=== PATIENT | female | born 1980 | race Two or more races ===

== ENCOUNTER → 2020-12-26 | Day surgery (SDC) | payer MEDICAID, OTHER ==
[~2020-12-26] VITALS: Ht 149.9 cm; Wt 95.3 kg
[~2020-12-26] MED LIST: DexAMETHasone SOD PHOS 10MG/1ML VIAL INJ ONE; HYDROmorphone HCL 2 MG/ML VL ONE; LABETALOL HCL 5 MG/ML 4ML SYRINGE IV PRN; MEPERIDINE HCL (50 MG/ML) 1 ML VIAL ONE; METHYLENE BLUE 0.5% 5MG/ML 10ml AMP IV ONE; MIDAZOLAM HCL 2MG/2ML 2ml VIAL (1mg/ml) IV PRN; MIDAZOLAM HCL 2MG/2ML 2ml VIAL (1mg/ml) ONE; MORPHINE SULFATE 4 MG/ML SYR/VIAL IV PRN; ONDANSETRON HCL 4 MG/2 ML VIAL IV PRN; ONDANSETRON HCL 4 MG/2 ML VIAL ONE; ROCURONIUM 10MG/ML 10ML VIAL IV ONE; SODIUM CHLORIDE 0.9% 1,000 ML IV ONE; SUCCINYLCHOLINE CHLORIDE 20 MG/ML 10ML VIAL IV ONE; ceFAZolin 1GM/50ML 100 ML IV ONE; ePHEDrine SULFATE 50 MG/ML AMP IV PRN; hydrALAZINE HCL 20 MG/ML VL IV PRN
[2020-12-26 10:09] LABS: Hemoglobin 9.4 g/dL (12.2-16.2); Monocytes # (auto) 0.5 10 ^3/uL (0-1.3); Neutrophils # (auto) 3.3 10 ^3/uL (1.6-8.6)
[2020-12-26 10:11] LABS: Basophils # (auto) 0.1 10 ^3/uL (0-0.2); Basophils % (auto) 0.9 % (0.0-2.0); Eosinophils # (auto) 0.2 10 ^3/uL (0-0.8); Eosinophils % (auto) 2.7 % (0.0-7.0); Hematocrit 30.8 % (36.0-46.0); Lymphocytes % (auto) 33.5 % (10.0-50.0); Mean Corpuscular Hemoglobin 19.4 pg (28.0-32.0); Mean Corpuscular Hgb Conc. 30.4 g/dL (32.0-36.0); Mean Corpuscular Volume 63.9 fL (80.0-100.0); Neutrophils % (auto) 54.9 % (37.0-80.0); Red Blood Cells 4.82 10^6/uL (4.0-5.20); Red Cell Distribution Width 19.5 % (11.8-14.3)
[2020-12-26 10:23] LABS: INR 0.98 (0.9-1.15); Partial Thromboplastin Time 23.1 sec (23.6-33.0)
[2020-12-26 10:41] LABS: Albumin 3.4 g/dL (3.4-5.0); Calcium 8.5 mg/dL (8.5-10.1); Potassium 3.8 mmol/L (3.5-5.1)
[2020-12-26 10:45] LABS: BUN/Creatinine Ratio 14.8; Bilirubin, Total 0.3 mg/dL (0.2-1.0); Total Protein 7.7 g/dL (6.4-8.2)
[2020-12-26] MEDS: BUPIVACAINE 0.25% INJ 50ML VIAL ONE ×2 (12:53→15:25)
[2020-12-26] MEDS: HYDROmorphone HCL 2 MG/ML VL IV PRN ×2 (15:45→16:08)
[2020-12-26 16:15] VITALS: BP 118/66
== END | disposition home or self-care (01) ==
LOC: ER 09:35 → SUR 09:36 → ER 13:20
PROVIDERS: ATTEND Obstetrics & Gynecology
DX: R10.30 Lower abdominal pain, unspecified (principal); O03.4 Incomplete spontaneous abortion without complication; E66.01 Morbid (severe) obesity due to excess calories; D64.9 Anemia, unspecified; Z68.41 Body mass index [BMI] 40.0-44.9, adult; Z98.890 Other specified postprocedural states; Z79.899 Other long term (current) drug therapy
CPT/HCPCS: 36415; 58120; 76801; 76817; 80053; 84702; 85025; 85610; 85730; 86850; 86900; 86901; 87426; 88305; 88312; 88342; J0330; J0690; J1100; J1170; J2175; J2250; J2405; J3490; J7030; 99152

== ENCOUNTER → 2021-09-06 | Outpatient (CLI) | payer BC | END | disposition home or self-care (01) | LOC: LAB 07:09 | PROVIDERS: ATTEND Nurse Practitioner Family | DX: R20.0 Anesthesia of skin (principal); N93.0 Postcoital and contact bleeding | CPT/HCPCS: 87086 ==

== ENCOUNTER 2021-12-20 12:02 | Day surgery (SDC) | payer BC ==
[2021-12-18 10:27] LABS: Basophils # (auto) 0.1 10 ^3/uL (0-0.2); Eosinophils # (auto) 0.1 10 ^3/uL (0-0.8); Hemoglobin 9.5 g/dL (12.2-16.2); Nucleated Red Blood Cells % 0.1 %; White Blood Cell 6.6 10^3/uL (4.4-10.8)
[2021-12-18 10:31] LABS: Basophils % (auto) 0.8 % (0.0-2.0); Eosinophils % (auto) 2.3 % (0.0-7.0); Hematocrit 32.9 % (36.0-46.0); Lymphocytes # (auto) 2.4 10 ^3/uL (0.4-5.4); Lymphocytes % (auto) 36.8 % (10.0-50.0); Mean Corpuscular Hemoglobin 18.2 pg (28.0-32.0); Mean Corpuscular Hgb Conc. 28.8 g/dL (32.0-36.0); Mean Corpuscular Volume 63.4 fL (80.0-100.0); Monocytes # (auto) 0.5 10 ^3/uL (0-1.3); Monocytes % (auto) 7.3 % (0.0-12.0); Neutrophils # (auto) 3.5 10 ^3/uL (1.6-8.6); Neutrophils % (auto) 52.8 % (37.0-80.0); Red Blood Cells 5.19 10^6/uL (4.0-5.20); Red Cell Distribution Width 20.9 % (11.8-14.3)
[2021-12-18 10:42] LABS: INR 0.93 (0.9-1.15); Partial Thromboplastin Time 25.4 sec (24.6-33.4)
[2021-12-18 10:57] LABS: Albumin 3.4 g/dL (3.4-5.0); Calcium 8.9 mg/dL (8.5-10.1)
[2021-12-18 11:04] LABS: BUN/Creatinine Ratio 13.3; Bilirubin, Total 0.4 mg/dL (0.2-1.0); Total Protein 7.8 g/dL (6.4-8.2)
[2021-12-18 11:17] LABS: Urine Bacteria FEW /hpf (None Seen); Urine Blood Negative /uL (Negative); Urine Mucus FEW (None Seen); Urine Specific Gravity 1.027 (1.001-1.035); Urine WBC 3 /hpf (0 - 5)
[~2021-12-20] VITALS: Ht 149.9 cm; Wt 95.3 kg
[~2021-12-20 12:02] MED LIST changes: -DexAMETHasone SOD PHOS 10MG/1ML VIAL INJ ONE; -HYDROmorphone HCL 2 MG/ML VL ONE; -LABETALOL HCL 5 MG/ML 4ML SYRINGE IV PRN; -MEPERIDINE HCL (50 MG/ML) 1 ML VIAL ONE; -METHYLENE BLUE 0.5% 5MG/ML 10ml AMP IV ONE; -MIDAZOLAM HCL 2MG/2ML 2ml VIAL (1mg/ml) IV PRN; -MIDAZOLAM HCL 2MG/2ML 2ml VIAL (1mg/ml) ONE; -MORPHINE SULFATE 4 MG/ML SYR/VIAL IV PRN; +OMEP20TA PO; -ONDANSETRON HCL 4 MG/2 ML VIAL IV PRN; -ONDANSETRON HCL 4 MG/2 ML VIAL ONE; -ROCURONIUM 10MG/ML 10ML VIAL IV ONE; -SODIUM CHLORIDE 0.9% 1,000 ML IV ONE; -SUCCINYLCHOLINE CHLORIDE 20 MG/ML 10ML VIAL IV ONE; -ceFAZolin 1GM/50ML 100 ML IV ONE; -ePHEDrine SULFATE 50 MG/ML AMP IV PRN; -hydrALAZINE HCL 20 MG/ML VL IV PRN
[2021-12-20] MEDS ORDERED: LIDOCAINE VISCOUS 2% 15ML UD ONE (14:43)
[2021-12-20] MEDS ORDERED: SODIUM CHLORIDE LOCK 10 ML ONE (14:44)
[2021-12-20] MEDS: diphenhdrAMINE HCL 50 MG/1 ML VL ONE ×2 (15:04→15:06)
[2021-12-20] MEDS: MIDAZOLAM HCL 5 MG/ML-1ML VIAL ONE ×3 (15:04→15:10)
[2021-12-20] MEDS: fentaNYL CITRATE 100 MCG/2 ML VL ONE ×2 (15:04→15:07)
[2021-12-20] MEDS ORDERED: HYDROmorphone HCL 2 MG/ML VL/or syr ONE (15:40)
[2021-12-20] MEDS ORDERED: HYDROmorphone HCL 2 MG/ML VL/or syr IV ONE ×2 (15:45→16:30)
[2021-12-20 16:40] VITALS: BP 121/76
[2021-12-20] MEDS ORDERED: HYDROcodone-ACET 5/325MG TAB PO ONE (17:00)
[2021-12-20] MEDS ORDERED: ONDANSETRON HCL 4 MG/2 ML VIAL IM ONE (17:00)
== END 2021-12-20 17:26 | disposition home or self-care (01) ==
LOC: GI 12:02
PROVIDERS: ATTEND Internal Medicine Gastroenterology
DX: K21.9 Gastro-esophageal reflux disease without esophagitis (principal); K29.90 Gastroduodenitis, unspecified, without bleeding; K44.9 Diaphragmatic hernia without obstruction or gangrene; K31.89 Other diseases of stomach and duodenum; Z98.891 History of uterine scar from previous surgery; Z98.84 Bariatric surgery status; Z20.822 Contact with and (suspected) exposure to COVID-19
CPT/HCPCS: 36415; 43239; 71045; 74018; 80053; 81001; 84702; 85025; 85610; 85730; 88305; 88342; J1170; J1200; J2250; J2405; J3010; J7030; U0003; 45380; 99152

== ENCOUNTER 2022-01-24 12:18 | Day surgery (SDC) | payer BC ==
[2022-01-23 10:53] LABS: INR 0.95 (0.9-1.15); Partial Thromboplastin Time 25.8 sec (24.6-33.4)
[2022-01-23 10:57] LABS: Albumin 3.4 g/dL (3.4-5.0); Calcium 8.5 mg/dL (8.5-10.1); Potassium 4.7 mmol/L (3.5-5.1)
[2022-01-23 10:59] LABS: BUN/Creatinine Ratio 13.9; Bilirubin, Total 0.4 mg/dL (0.2-1.0)
[2022-01-23 11:36] LABS: Basophils # (auto) 0.1 10 ^3/uL (0-0.2); Eosinophils # (auto) 0.1 10 ^3/uL (0-0.8); Hemoglobin 9.9 g/dL (12.2-16.2); Lymphocytes # (auto) 2.4 10 ^3/uL (0.4-5.4); Mean Corpuscular Hemoglobin 18.4 pg (28.0-32.0); Neutrophils # (auto) 3.5 10 ^3/uL (1.6-8.6); Nucleated Red Blood Cells % 0.1 %; Red Blood Cells 5.38 10^6/uL (4.0-5.20)
[2022-01-23 11:37] LABS: Lymphocytes % (auto) 35.5 % (10.0-50.0); Mean Corpuscular Hgb Conc. 29.2 g/dL (32.0-36.0); Mean Corpuscular Volume 63.2 fL (80.0-100.0); Monocytes # (auto) 0.6 10 ^3/uL (0-1.3); Monocytes % (auto) 8.5 % (0.0-12.0); Red Cell Distribution Width 19.6 % (11.8-14.3); White Blood Cell 6.7 10^3/uL (4.4-10.8)
[~2022-01-24 12:18] MED LIST changes: +FER325T PO
[2022-01-24] MEDS ORDERED: SODIUM CHLORIDE LOCK 10 ML ONE (12:47)
[2022-01-24] MEDS: diphenhdrAMINE HCL 50 MG/1 ML VL ONE ×2 (13:48→13:51)
[2022-01-24] MEDS: fentaNYL CITRATE 100 MCG/2 ML VL ONE ×3 (13:48→13:54)
[2022-01-24] MEDS: MIDAZOLAM HCL 5 MG/ML-1ML VIAL ONE ×3 (13:48→13:54)
[2022-01-24] MEDS ORDERED: fentaNYL CITRATE 100 MCG/2 ML VL ONE (13:55)
[2022-01-24 15:10] VITALS: BP 98/48
== END 2022-01-24 15:46 | disposition home or self-care (01) ==
LOC: GI 12:18
PROVIDERS: ATTEND Internal Medicine Gastroenterology
DX: R10.32 Left lower quadrant pain (principal); K64.8 Other hemorrhoids; K63.89 Other specified diseases of intestine; K21.9 Gastro-esophageal reflux disease without esophagitis; Z98.891 History of uterine scar from previous surgery; Z98.84 Bariatric surgery status; Z20.822 Contact with and (suspected) exposure to COVID-19
CPT/HCPCS: 36415; 45378; 80053; 81025; 84702; 85025; 85610; 85730; J1200; J2250; J3010; J7030; U0003; 99152

== ENCOUNTER → 2023-04-25 | Outpatient (CLI) | payer BC ==
[2023-04-25 07:11] LABS: Basophils # (auto) 0 10 ^3/uL (0-0.2); Basophils % (auto) 0.5 % (0.0-2.0); Eosinophils # (auto) 0.2 10 ^3/uL (0-0.8); White Blood Cell 6.6 10^3/uL (4.4-10.8)
[2023-04-25 07:13] LABS: Urine Bacteria FEW /hpf (None Seen); Urine Blood Negative /uL (Negative); Urine Clarity Clear (Clear); Urine Color Yellow (Yellow); Urine Mucus FEW (None Seen); Urine Protein, UAD Negative (Negative); Urine Specific Gravity 1.024 (1.001-1.035); Urine Urobilinogen Normal (Negative); Urine WBC 3 /hpf (0 - 5); Urine pH 5.5 (5.0-8.0)
[2023-04-25 07:15] LABS: Eosinophils % (auto) 2.9 % (0.0-7.0); Hematocrit 42.4 % (36.0-46.0); Hemoglobin 13.3 g/dL (12.2-16.2); Lymphocytes % (auto) 45.3 % (10.0-50.0); Mean Corpuscular Hemoglobin 22.6 pg (28.0-32.0); Mean Corpuscular Hgb Conc. 31.4 g/dL (32.0-36.0); Monocytes # (auto) 0.5 10 ^3/uL (0-1.3); Monocytes % (auto) 6.9 % (0.0-12.0); Neutrophils # (auto) 2.9 10 ^3/uL (1.6-8.6); Neutrophils % (auto) 44.4 % (37.0-80.0); Red Blood Cells 5.89 10^6/uL (4.0-5.20)
[2023-04-25 07:19] LABS: Red Cell Distribution Width 22.1 % (11.8-14.3)
[2023-04-25 08:07] LABS: Alanine Aminotransferase 104 U/L (7-40); Albumin 4.9 g/dL (3.2-4.8); Alkaline Phosphatase 93 U/L (46-116); Anion Gap 8 (5-15); Aspartate Aminotransferase 58 U/L (13-40); BUN/Creatinine Ratio 17.6 (10.0-20.0); Blood Urea Nitrogen 12 mg/dL (9-23); Calcium 9.9 mg/dL (8.5-10.1); Carbon Dioxide 23 mmol/L (20-30); Chloride 105 mmol/L (98-107); Glucose 123 mg/dL (74-106); LDL Cholesterol 104 mg/dL (< 100); Potassium 4.6 mmol/L (3.5-5.1); Sodium 136 mmol/L (136-145); Triglycerides 97 mg/dL (< 150)
[2023-04-25 08:08] LABS: Bilirubin, Total 0.3 mg/dL (0.2-1.0); Cholesterol 142 mg/dL (< 200); HDL Cholesterol 34 mg/dL (40-59); Total Protein 8.4 g/dL (5.7-8.2)
[2023-04-25 08:22] LABS: Creatinine, Urine 140.74 mg/dL (30.0-125.0)
[2023-04-25 08:24] LABS: Micro Albumin < 3.0 mg/L (<30.0)
== END | disposition home or self-care (01) ==
LOC: LAB 06:45
DX: E11.9 Type 2 diabetes mellitus without complications (principal); E55.9 Vitamin D deficiency, unspecified; E78.5 Hyperlipidemia, unspecified; R74.8 Abnormal levels of other serum enzymes
CPT/HCPCS: 36415; 80053; 80061; 81001; 82043; 82570; 82977; 83036; 85025

== ENCOUNTER → 2023-09-20 | Outpatient (CLI) | payer BC ==
[2023-09-20 07:03] LABS: Eosinophils # (auto) 0.1 10 ^3/uL (0-0.8); Monocytes # (auto) 0.6 10 ^3/uL (0-1.3); Monocytes % (auto) 8.1 % (0.0-12.0); Red Cell Distribution Width 14.4 % (11.8-14.3); White Blood Cell 7.7 10^3/uL (4.4-10.8)
[2023-09-20 07:05] LABS: Basophils # (auto) 0 10 ^3/uL (0-0.2); Basophils % (auto) 0.6 % (0.0-2.0); Eosinophils % (auto) 1.5 % (0.0-7.0); Hematocrit 39.9 % (36.0-46.0); Hemoglobin 12.7 g/dL (12.2-16.2); Lymphocytes # (auto) 2.6 10 ^3/uL (0.4-5.4); Lymphocytes % (auto) 33.4 % (10.0-50.0); Mean Corpuscular Hemoglobin 25.9 pg (28.0-32.0); Mean Corpuscular Hgb Conc. 31.9 g/dL (32.0-36.0); Mean Corpuscular Volume 81.4 fL (80.0-100.0); Neutrophils # (auto) 4.3 10 ^3/uL (1.6-8.6); Neutrophils % (auto) 56.4 % (37.0-80.0)
[2023-09-20 07:54] LABS: Amphetamine Screen, Urine Neg (NEGATIVE)
[2023-09-20 07:55] LABS: Barbiturate Scree,Urine Neg (NEGATIVE)
[2023-09-20 07:56] LABS: Benzodiazephine Screen, Urine Neg (NEGATIVE); Cannabinoid Screen, Urine Neg (NEGATIVE); Cocaine Screen, Urine Neg (NEGATIVE); Opiate Scree,Urine Neg (NEGATIVE); Phencyclidine Screen, Urine Neg (NEGATIVE)
[2023-09-20 07:59] LABS: Alanine Aminotransferase 26 U/L (7-40); Albumin 4.3 g/dL (3.2-4.8); Alkaline Phosphatase 65 U/L (46-116); Anion Gap 8 (5-15); Aspartate Aminotransferase 26 U/L (13-40); Blood Urea Nitrogen 9 mg/dL (9-23); Calcium 9.7 mg/dL (8.5-10.1); Carbon Dioxide 24 mmol/L (20-30); Chloride 106 mmol/L (98-107); Cholesterol 155 mg/dL (< 200); Glucose 133 mg/dL (74-106); HDL Cholesterol 40 mg/dL (40-59); LDL Cholesterol 103 mg/dL (< 100); Potassium 3.8 mmol/L (3.5-5.1); Sodium 138 mmol/L (136-145); Triglycerides 123 mg/dL (< 150)
[2023-09-20 08:00] LABS: Bilirubin, Total 0.5 mg/dL (0.2-1.0); Total Protein 7.4 g/dL (5.7-8.2)
[2023-09-20 09:01] LABS: Free T3 3.41 pg/mL (2.3-4.2)
[2023-09-20 09:02] LABS: Free T4 (Free Thyroxine) 0.97 ng/dL (0.89-1.76)
[2023-09-21 07:06] LABS: RPR Non Reactive (Non Reactive)
[2023-09-22 05:06] LABS: Chlamydia Trachomatis, NAA Negative (Negative); Neisseria gonorrhoeae, NAA Negative (Negative)
[2023-09-24 08:06] LABS: Varicella Zoster IgG Antibody 897 index (Immune >165)
== END | disposition home or self-care (01) ==
LOC: LAB 06:17
PROVIDERS: ATTEND Obstetrics & Gynecology
DX: Z34.80 Encounter for supervision of other normal pregnancy, unspecified trimester (principal); Z36.0 Encounter for antenatal screening for chromosomal anomalies; Z31.430 Encounter of female for testing for genetic disease carrier status for procreative management; N39.0 Urinary tract infection, site not specified
CPT/HCPCS: 36415; 80053; 80061; 80307; 84439; 84481; 85025; 86592; 86762; 86787; 86850; 86900; 86901; 87340

== ENCOUNTER → 2023-10-25 | Outpatient (CLI) | payer BC ==
[2023-10-25 11:02] LABS: Protein, Urine 14.1 mg/dL (0.0-11.9)
[2023-10-25 11:05] LABS: Creatinine, Urine 117.1 mg/dL (30.0-125.0); Urine Protein/Creatinine Ratio 0.12
== END | disposition home or self-care (01) ==
LOC: LAB 09:31
PROVIDERS: ATTEND Obstetrics & Gynecology
DX: Z34.80 Encounter for supervision of other normal pregnancy, unspecified trimester (principal); Z3A.00 Weeks of gestation of pregnancy not specified
CPT/HCPCS: 36415; 82570; 83036; 84156; 87086

== ENCOUNTER → 2023-11-07 | Outpatient (CLI) | payer BC ==
[2023-11-07 10:02] LABS: Urine Bacteria FEW /hpf (None Seen); Urine Blood Negative /uL (Negative); Urine Clarity Clear (Clear); Urine Color Yellow (Yellow); Urine Mucus FEW (None Seen); Urine Protein, UAD Negative (Negative); Urine Urobilinogen Normal (Negative); Urine WBC 1 /hpf (0 - 5); Urine pH 6.5 (5.0-9.0)
[2023-11-10 08:06] LABS: QuantiFERON-TB Gold Plus Positive (Negative)
== END | disposition home or self-care (01) ==
LOC: LAB 09:13
PROVIDERS: ATTEND Obstetrics & Gynecology
DX: Z34.80 Encounter for supervision of other normal pregnancy, unspecified trimester (principal); Z3A.00 Weeks of gestation of pregnancy not specified
CPT/HCPCS: 36415; 81001; 84443; 86703; 86803; 87086

== ENCOUNTER → 2023-12-06 | Outpatient (CLI) | payer BC ==
[2023-12-06 08:21] LABS: Basophils # (auto) 0 10 ^3/uL (0-0.2); Eosinophils # (auto) 0.1 10 ^3/uL (0-0.8); Hemoglobin 11.3 g/dL (12.2-16.2)
[2023-12-06 08:23] LABS: Basophils % (auto) 0.5 % (0.0-2.0); Eosinophils % (auto) 0.9 % (0.0-7.0); Hematocrit 35.4 % (36.0-46.0); Lymphocytes # (auto) 2.1 10 ^3/uL (0.4-5.4); Lymphocytes % (auto) 24.1 % (10.0-50.0); Mean Corpuscular Hemoglobin 23.8 pg (28.0-32.0); Mean Corpuscular Volume 74.6 fL (80.0-100.0); Monocytes # (auto) 0.6 10 ^3/uL (0-1.3); Monocytes % (auto) 6.6 % (0.0-12.0); Neutrophils # (auto) 5.9 10 ^3/uL (1.6-8.6); Neutrophils % (auto) 67.9 % (37.0-80.0); Nucleated Red Blood Cells % 0.1 %; Red Blood Cells 4.74 10^6/uL (4.0-5.20); Red Cell Distribution Width 14.9 % (11.8-14.3); White Blood Cell 8.6 10^3/uL (4.4-10.8)
[2023-12-06 09:16] LABS: Alanine Aminotransferase 14 U/L (7-40); Albumin 4.1 g/dL (3.2-4.8); Alkaline Phosphatase 63 U/L (46-116); Anion Gap 7 (5-15); Aspartate Aminotransferase 11 U/L (13-40); Blood Urea Nitrogen 8 mg/dL (9-23); Calcium 9.4 mg/dL (8.7-10.4); Carbon Dioxide 23 mmol/L (20-30); Chloride 107 mmol/L (98-107); Glucose 92 mg/dL (74-106); Potassium 4.1 mmol/L (3.5-5.1); Sodium 137 mmol/L (136-145)
[2023-12-06 09:17] LABS: Bilirubin, Total 0.4 mg/dL (0.2-1.0); Total Protein 6.9 g/dL (5.7-8.2)
== END | disposition home or self-care (01) ==
LOC: LAB 07:29
PROVIDERS: ATTEND Student in an Organized Health Care Education/Training Program
DX: I10 Essential (primary) hypertension (principal); E11.9 Type 2 diabetes mellitus without complications; E55.9 Vitamin D deficiency, unspecified
CPT/HCPCS: 36415; 80053; 82306; 83036; 84443; 85025

== ENCOUNTER 2024-02-03 13:50 | Observation (INO) | payer BC ==
[~2024-02-03] VITALS: Ht 149.9 cm; Wt 101.2 kg
== END 2024-02-03 15:13 | disposition home or self-care (01) ==
LOC: UNDOADMOB 13:50 → LDRP 13:50 → UNDODISOB 15:13
PROVIDERS: ADMIT Obstetrics & Gynecology; ATTEND Obstetrics & Gynecology
DX: O36.8130 Decreased fetal movements, third trimester, not applicable or unspecified (principal); O24.913 Unspecified diabetes mellitus in pregnancy, third trimester; Z3A.28 28 weeks gestation of pregnancy; Z79.899 Other long term (current) drug therapy
CPT/HCPCS: 59025; 81002; 82948; 94760; G0378

== ENCOUNTER 2024-03-02 15:12 | Observation (INO) | payer BC, MEDICAID ==
[~2024-03-02] VITALS: Ht 149.9 cm; Wt 102.5 kg
[2024-03-02] MEDS: ACETAMINOPHEN 325 MG TAB PO ONE (16:36)
[2024-03-02] MEDS ORDERED: PREN-96 PO (16:54)
[2024-03-02] MEDS ORDERED: INSREG3 IV (16:55)
[2024-03-02] MEDS ORDERED: INSUINJ2 SC (16:55)
[2024-03-02] MEDS ORDERED: GLYB2.5T8 PO (16:56)
== END 2024-03-02 17:09 | disposition home or self-care (01) ==
LOC: LDRP 15:12
PROVIDERS: ADMIT Obstetrics & Gynecology; ATTEND Obstetrics & Gynecology
DX: O24.414 Gestational diabetes mellitus in pregnancy, insulin controlled (principal); O24.415 Gestational diabetes mellitus in pregnancy, controlled by oral hypoglycemic drugs; O26.893 Other specified pregnancy related conditions, third trimester; R51.9 Headache, unspecified; Z3A.32 32 weeks gestation of pregnancy; Z79.4 Long term (current) use of insulin; Z79.84 Long term (current) use of oral hypoglycemic drugs; Z87.891 Personal history of nicotine dependence; Z79.899 Other long term (current) drug therapy
CPT/HCPCS: 59025; 76818; 81002; 82948; 82962; 94760; G0378

== ENCOUNTER 2024-03-04 10:45 | Observation (INO) | payer BC, MEDICAID ==
[~2024-03-04 10:45] MED LIST changes: +GLYB2.5T8 PO; +INSREG3 IV; +INSUINJ2 SC; +PREN-96 PO
== END 2024-03-05 17:37 | disposition home or self-care (01) ==
LOC: UNDOADMOB 03-05 15:58 → LDRP 03-05 15:58 → UNDODISOB 03-05 17:37
PROVIDERS: ADMIT Obstetrics & Gynecology; ATTEND Obstetrics & Gynecology
DX: O24.419 Gestational diabetes mellitus in pregnancy, unspecified control (principal); Z3A.32 32 weeks gestation of pregnancy; Z87.891 Personal history of nicotine dependence
CPT/HCPCS: 59025; 76818; 81002; 82962; G0378

== ENCOUNTER 2024-03-09 12:16 | Observation (INO) | payer BC, MEDICAID | END 2024-03-09 15:21 | disposition home or self-care (01) | LOC: LDRP 13:41 → UNDOADMOB 13:41 → LDRP 13:54 | PROVIDERS: ADMIT Obstetrics & Gynecology; ATTEND Obstetrics & Gynecology | DX: O24.419 Gestational diabetes mellitus in pregnancy, unspecified control (principal); O26.893 Other specified pregnancy related conditions, third trimester; R10.2 Pelvic and perineal pain; Z3A.33 33 weeks gestation of pregnancy; Z87.891 Personal history of nicotine dependence | CPT/HCPCS: 59025; 76818; 81002; 82948; 82962; 94760; G0378 ==

== ENCOUNTER 2024-03-12 14:25 | Observation (INO) | payer BC, MEDICAID | END 2024-03-12 18:52 | disposition home or self-care (01) | LOC: LDRP 17:20 | PROVIDERS: ADMIT Obstetrics & Gynecology; ATTEND Obstetrics & Gynecology | DX: O24.419 Gestational diabetes mellitus in pregnancy, unspecified control (principal); Z3A.33 33 weeks gestation of pregnancy; Z87.891 Personal history of nicotine dependence | CPT/HCPCS: 59025; 76818; 81002; 82948; 82962; 94760; G0378 ==

== ENCOUNTER → 2024-03-13 | Outpatient (CLI) | payer BC, MEDICAID ==
[2024-03-13 10:02] LABS: Basophils # (auto) 0.1 10 ^3/uL (0-0.2); Eosinophils # (auto) 0.1 10 ^3/uL (0-0.8); Lymphocytes # (auto) 1.9 10 ^3/uL (0.4-5.4); Mean Corpuscular Hgb Conc. 31.6 g/dL (32.0-36.0); Neutrophils % (auto) 70.5 % (37.0-80.0); White Blood Cell 8.9 10^3/uL (4.4-10.8)
[2024-03-13 10:03] LABS: Basophils % (auto) 0.7 % (0.0-2.0); Hematocrit 39.1 % (36.0-46.0); Hemoglobin 12.4 g/dL (12.2-16.2); Lymphocytes % (auto) 21.9 % (10.0-50.0); Mean Corpuscular Hemoglobin 24.1 pg (28.0-32.0); Mean Corpuscular Volume 76.2 fL (80.0-100.0); Monocytes # (auto) 0.5 10 ^3/uL (0-1.3); Monocytes % (auto) 5.9 % (0.0-12.0); Neutrophils # (auto) 6.2 10 ^3/uL (1.6-8.6); Nucleated Red Blood Cells % 0.1 %; Platelet Count (auto) 165 10^3/uL (140-450); Red Blood Cells 5.14 10^6/uL (4.0-5.20); Red Cell Distribution Width 20.1 % (11.8-14.3)
[2024-03-13 10:38] LABS: Alanine Aminotransferase 15 U/L (7-40); Albumin 3.8 g/dL (3.2-4.8); Alkaline Phosphatase 149 U/L (46-116); Anion Gap 8 (5-15); Aspartate Aminotransferase 15 U/L (13-40); BUN/Creatinine Ratio 10.7 (10.0-20.0); Blood Urea Nitrogen 6 mg/dL (9-23); Calcium 9.7 mg/dL (8.7-10.4); Carbon Dioxide 23 mmol/L (20-31); Chloride 107 mmol/L (98-107); Glucose 106 mg/dL (74-106); Potassium 4.1 mmol/L (3.5-5.1); Sodium 138 mmol/L (136-145)
[2024-03-13 10:39] LABS: Bilirubin, Total 0.3 mg/dL (0.2-1.0); Total Protein 6.9 g/dL (5.7-8.2)
== END | disposition home or self-care (01) ==
LOC: LAB 09:46
PROVIDERS: ATTEND Obstetrics & Gynecology
DX: Z34.00 Encounter for supervision of normal first pregnancy, unspecified trimester (principal)
CPT/HCPCS: 36415; 80053; 83036; 85025

== ENCOUNTER 2024-03-15 08:29 | Observation (INO) | payer BC, MEDICAID | END 2024-03-15 12:31 | disposition home or self-care (01) | LOC: LDRP 11:05 | PROVIDERS: ADMIT Obstetrics & Gynecology; ATTEND Obstetrics & Gynecology | DX: O24.419 Gestational diabetes mellitus in pregnancy, unspecified control (principal); Z3A.34 34 weeks gestation of pregnancy; Z87.891 Personal history of nicotine dependence | CPT/HCPCS: 59025; 76818; 81002; 82948; 82962; G0378 ==

== ENCOUNTER 2024-03-16 15:50 | Observation (INO) | payer BC, MEDICAID ==
[~2024-03-16] VITALS: Ht 149.9 cm; Wt 104.3 kg
== END 2024-03-16 17:37 | disposition home or self-care (01) ==
LOC: UNDOADMOB 15:50 → LDRP 15:50 → UNDODISOB 17:37
PROVIDERS: ADMIT Obstetrics & Gynecology; ATTEND Obstetrics & Gynecology
DX: O24.419 Gestational diabetes mellitus in pregnancy, unspecified control (principal); O99.891 Other specified diseases and conditions complicating pregnancy; M54.9 Dorsalgia, unspecified; O62.9 Abnormality of forces of labor, unspecified; Z3A.34 34 weeks gestation of pregnancy; Z87.891 Personal history of nicotine dependence
CPT/HCPCS: 59025; 81002; 82948; 82962; 94760; G0378

== ENCOUNTER 2024-03-18 10:05 | Observation (INO) | payer BC, MEDICAID ==
[2024-03-18] MEDS ORDERED: ASPI-543 PO (18:45)
== END 2024-03-18 19:04 | disposition home or self-care (01) ==
LOC: LDRP 17:28
PROVIDERS: ADMIT Obstetrics & Gynecology; ATTEND Obstetrics & Gynecology
DX: O24.414 Gestational diabetes mellitus in pregnancy, insulin controlled (principal); O09.523 Supervision of elderly multigravida, third trimester; O12.03 Gestational edema, third trimester; Z3A.34 34 weeks gestation of pregnancy; Z87.891 Personal history of nicotine dependence; Z79.4 Long term (current) use of insulin
CPT/HCPCS: 59025; 76818; 81002; 82948; 82962; G0378

== ENCOUNTER 2024-03-22 09:43 | Observation (INO) | payer BC, MEDICAID ==
[~2024-03-22 09:43] MED LIST changes: +ASPI-543 PO
== END 2024-03-22 11:20 | disposition home or self-care (01) ==
LOC: LDRP 09:43
PROVIDERS: ADMIT Obstetrics & Gynecology; ATTEND Obstetrics & Gynecology
DX: O24.419 Gestational diabetes mellitus in pregnancy, unspecified control (principal); Z3A.35 35 weeks gestation of pregnancy; Z87.891 Personal history of nicotine dependence
CPT/HCPCS: 59025; 76818; 81002; 82948; 82962; 94760; G0378

== ENCOUNTER 2024-03-25 14:31 | Observation (INO) | payer BC, MEDICAID ==
--- NOTE | 2024-03-25 17:53 | DVH ---
Procedure: US BIOPHYSICAL PROFILE 03/25/2024 05:28 PM Indication:DM 2. Comparison: US BIOPHYSICAL PROFILE on DOS: 03/22/24, US BIOPHYSICAL PROFILE on DOS: 03/18/24, US BIOPH YSICAL PROFILE on DOS: 03/15/24 Technique: Sonogram of gravid uterus utilizing grayscale and color techniques. FINDINGS: Single living intrauterine gestation. Presentation: Cephalic Placenta: Anterior heart rate: 145 bpm SAPNA: 17 cm, DVP: 6.5 cm Maternal cervix: Not visualized Biophysical Profile: breathing score: 2 movement score: 2 tone: 2 Quantitative SAPNA score: 2 Total score: 8/8 IMPRESSION: 1. Single living as above. 2. Biophysical profile score: 8/8.
--- NOTE | 2024-03-25 18:50 | DVHDS2 ---
Physician Discharge Progress N Final Diagnosis: testing for T2DM Operations or Procedures: Operations or Procedures 44yo IUP@35.5wks, +FM, denies UCs/VB VSS UA wnl NST reactive BPP wnl FKC/PTL precautions reviewed Condition on Discharge: Stable Disposition: Home Discharge Instructions: Diet: Consistent carbohydrate Activity: No Restrictions, As Tolerated Medications: see med list Follow Up Care: Specialist: f/u in 3 days Discharge Statement: "Patient was advised to return to the ER or call 911 if any headaches, dizziness, shortness of breath, chest pain, abdominal pain, bleeding, fevers, or worsening of medical condition. Patient was counseled about treatment plan, medications, possible side effects, patientverbalized understanding. All questions were answered to the best of my ability. This discharge took greater then 30 minutes in planning, reviewing docum entation, counseling the patient, and discussing with other team members." ABIMBOLA BIGGS CNM Mar 25, 2024 18:50
== END 2024-03-25 18:34 | disposition home or self-care (01) ==
LOC: LDRP 17:19
PROVIDERS: ADMIT Obstetrics & Gynecology; ATTEND Obstetrics & Gynecology
DX: O09.523 Supervision of elderly multigravida, third trimester (principal); O24.419 Gestational diabetes mellitus in pregnancy, unspecified control; Z3A.35 35 weeks gestation of pregnancy; Z79.899 Other long term (current) drug therapy
CPT/HCPCS: 59025; 76818; 81002; 82948; 94760; G0378

== ENCOUNTER 2024-03-29 05:48 | Observation (INO) | payer BC, MEDICAID ==
--- NOTE | 2024-03-29 09:11 | DVH ---
Procedure: US BIOPHYSICAL PROFILE 03/29/2024 08:42 AM Indication:ama/gdma2. Comparison: US BIOPHYSICAL PROFILE on DOS: 03/25/24, US BIOPHYSICAL PROFILE on DOS: 03/22/24, US BIOPHY SICAL PROFILE on DOS: 03/18/24 Technique: Sonogram of gravid uterus utilizing grayscale and color techniques. FINDINGS: Single living intrauterine gestation. Presentation: Cephalic Placenta: Anterior, grade 2 heart rate: 152 bpm SAPNA: 16.6 cm, DVP: 6.8 cm Maternal cervix: Not visualized Biophysical Profile: breathing score: 2 movement score: 2 tone: 2 Quantitative SAPNA score: 2 Total score: 8/8 IMPRESSION: 1. Single living as above. 2. Biophysical profile score: 8/8.
--- NOTE | 2024-03-29 10:44 | DVHDS2 ---
Physician Discharge Progress N Final Diagnosis: GDM Operations or Procedures: Operations or Procedures NST,SONO Condition on Discharge: Good Disposition: Home Discharge Instructions: Diet: Regular Activity: No Restrictions, As Tolerated Medications: NA Follow Up Care: Specialist: 3D Discharge Statement: "Patient was advised to return to the ER or call 911 if any headaches, dizziness, shortness of breath, chest pain, abdominal pain, bleeding, fevers, or worsening of medical condition. Patient was counseled about treatment plan, medications, possible side effects, patientverbalized understanding. All questions were answered to the best of my ability. This discharge took greater then 30 minutes in planning, reviewing documentation, counseling the patient, and discussing with other team members." ABE PATEL DO Mar 29, 2024 10:44
== END 2024-03-29 09:51 | disposition home or self-care (01) ==
LOC: LDRP 07:45
PROVIDERS: ADMIT Obstetrics & Gynecology; ATTEND Obstetrics & Gynecology
DX: O24.419 Gestational diabetes mellitus in pregnancy, unspecified control (principal); Z3A.36 36 weeks gestation of pregnancy; Z87.891 Personal history of nicotine dependence; Z79.899 Other long term (current) drug therapy
CPT/HCPCS: 59025; 76818; 81002; 82948; 82962; G0378

== ENCOUNTER 2024-04-01 14:02 | Observation (INO) | payer BC, MEDICAID ==
--- NOTE | 2024-04-01 18:05 | DVH ---
BIOPHYSICAL PROFILE HISTORY: AMA, diabetic TECHNIQUE: Multiple transabdominal real-time grayscale sonographic images through the gravid uterus of the fetus with duplex Doppler color flow and M-mode spectral analysis FINDINGS: BIOPHYSICAL PROFILE: breathing score: 2 movement score: 2 tone score: 2 Quantitative SAPNA score: 2 (SAPNA: 16.5 Cm.) Total score: 8 The cervix not well visualized Single live fetus in cephalic presentation. heart rate 147 beats per minute. Anterior placenta without previa or abruption IMPRESSION: Biophysical profile score: 8
--- NOTE | 2024-04-01 19:02 | DVHDS2 ---
Physician Discharge Progress N Final Diagnosis: testing for GDMA2 and AMA Operations or Procedures: Operations or Procedures 44yo IUP@36.5wks VSS UA wnl NST reactive BPP wnl FKC/PTL/labor precautions reviewed Condition on Discharge: Stable Disposition: Home Discharge Instructions: Diet: Consistent carbohydrate Activity: No Restrictions, As Tolerated Medications: see med list Follow Up Care: Specialist: f/u in 3 days Discharge Statement: "Patient was advised to return to the ER or call 911 if any headaches, dizziness, shortness of breath, chest pain, abdominal pain, bleeding, fevers, or worsening of medical condition. Patient was counseled about treatment plan, medications, possible side effects, patientverbalized understanding. All questions were answered to the best of my ability. This discharge took greater then 30 minutes in planning, reviewing documentat ion, counseling the patient, and discussing with other team members." ABIMBOLA BIGGS CNM Apr 01, 2024 19:02
== END 2024-04-01 18:59 | disposition home or self-care (01) ==
LOC: LDRP 17:25
PROVIDERS: ADMIT Obstetrics & Gynecology; ATTEND Obstetrics & Gynecology
DX: O09.523 Supervision of elderly multigravida, third trimester (principal); O42.913 Preterm premature rupture of membranes, unspecified as to length of time between rupture and onset of labor, third trimester; O24.419 Gestational diabetes mellitus in pregnancy, unspecified control; Z79.899 Other long term (current) drug therapy; Z98.890 Other specified postprocedural states; Z3A.36 36 weeks gestation of pregnancy
CPT/HCPCS: 59025; 76818; 81002; 82948; 82962; 94760; G0378

== ENCOUNTER → 2024-06-25 | Day surgery (SDC) | payer BC, MEDICAID ==
[2024-06-22 11:58] LABS: Basophils # (auto) 0 10 ^3/uL (0-0.2); Basophils % (auto) 0.7 % (0.0-2.0); Eosinophils # (auto) 0.1 10 ^3/uL (0-0.8); Eosinophils % (auto) 1.4 % (0.0-7.0); Hematocrit 43.6 % (36.0-46.0); Hemoglobin 13.6 g/dL (12.2-16.2); Lymphocytes # (auto) 2.1 10 ^3/uL (0.4-5.4); Lymphocytes % (auto) 36.8 % (10.0-50.0); Mean Corpuscular Hemoglobin 23.4 pg (28.0-32.0); Mean Corpuscular Hgb Conc. 31.3 g/dL (32.0-36.0); Mean Corpuscular Volume 74.9 fL (80.0-100.0); Monocytes # (auto) 0.4 10 ^3/uL (0-1.3); Monocytes % (auto) 7.5 % (0.0-12.0); Neutrophils # (auto) 3.1 10 ^3/uL (1.6-8.6); Neutrophils % (auto) 53.6 % (37.0-80.0); Nucleated Red Blood Cells % 0.1 %; Platelet Count (auto) 242 10^3/uL (140-450); Red Blood Cells 5.82 10^6/uL (4.0-5.20); Red Cell Distribution Width 20.7 % (11.8-14.3); White Blood Cell 5.8 10^3/uL (4.4-10.8)
[2024-06-22 12:13] LABS: Urine Bacteria FEW /hpf (None Seen); Urine Blood Negative /uL (Negative); Urine Clarity Clear (Clear); Urine Color Yellow (Yellow); Urine Mucus FEW (None Seen); Urine Protein, UAD TRACE (Negative); Urine Specific Gravity 1.027 (1.001-1.035); Urine Squamous Epithelial Cell FEW /hpf (<5); Urine Urobilinogen Normal (Negative); Urine WBC 10 /HPF (0-5); Urine pH 5.5 (5.0-9.0)
[2024-06-22 12:23] LABS: INR 0.99 (0.9-1.15); Partial Thromboplastin Time 26.7 SEC (24.5-34.5); Prothrombin Time 10.5 sec (9.3-11.8)
[2024-06-22 12:36] LABS: Alkaline Phosphatase 105 U/L (46-116); Anion Gap 9 (5-15); Calcium 10.2 mg/dL (8.7-10.4); Carbon Dioxide 24 mmol/L (20-31); Glucose 93 mg/dL (74-106); Potassium 3.9 mmol/L (3.5-5.1); Sodium 140 mmol/L (136-145)
[2024-06-22 12:37] LABS: Bilirubin, Total 0.4 mg/dL (0.2-1.0)
[2024-06-22 12:47] LABS: Alanine Aminotransferase 68 U/L (7-40); Albumin 5.2 g/dL (3.2-4.8); Aspartate Aminotransferase 49 U/L (13-40); Blood Urea Nitrogen 7 mg/dL (9-23); Chloride 107 mmol/L (98-107); Total Protein 8.3 g/dL (5.7-8.2)
--- NOTE | 2024-06-23 01:25 | DVHHP ---
ADMIT DATE: 06/25/2024 PREOPERATIVE HISTORY AND PHYSICAL CHIEF COMPLAINT: Request for voluntary female sterilization. HISTORY OF PRESENT ILLNESS: This is a 44-year-old 4, para 3, one previous ectopic . She has 3 living children. Her last menstrual period was 06/01/2024. She is currently not sexually active, not on control. Her last delivery was in 03/2024. The patient is requesting voluntary female sterilization. She desires permanent sterilization. PAST MEDICAL HISTORY: Morbid obesity, BMI of 41, type 2 diabetes, onychomycosis. PAST SURGICAL HISTORY: Gastric sleeve gastrectomy, 3 C-sections and surgery for ectopic . CURRENT MEDICATIONS: The patient takes metformin, vitamins and Lamisil. ALLERGIES: She has no known drug allergies. SOCIAL HISTORY: The patient is currently single. She denies any alcohol, tobacco or illicit drug use. FAMILY HISTORY: Noncontributory. REVIEW OF SYSTEMS: A 14-point review of systems is negative, otherwise stated in the history of present illness. PHYSICAL EXAMINATION: VITAL SIGNS: The patient is 59 inches tall, weight 203 pounds, BMI of 41, blood pressure 120/80. GENERAL: She is alert, in no acute distress, pleasant, appears her stated age. HEENT: Normal. NECK: Supple, with no palpable thyromegaly. HEART: Normal S1, S2 heart sounds. No murmurs or gallops. LUNGS: Clear to auscultation bilaterally. ABDOMEN: Obese, soft, nontender. Surgical scars present. EXTREMITIES: Without cyanosis deformity or edema. PELVIC: Deferred. ASSESSMENT: * Multiparity requesting voluntary female sterilization. * Previous section x 3. * Morbid obesity. * Type 2 diabetes. PLAN: The patient will be admitted to same day surgery for elective procedure. She has consented for: Pelvic exam under anesthesia, operative laparoscopic bilateral salpingectomy versus Filshie clips. Possible laparotomy, possible blood transfusion. Risks, benefits and alternatives to surgery discussed with the patient. Informed consent has been obtained. Risks of surgery including pain, scar, bleeding, infection, injury to bowel, bladder, or vessels, adjacent organs all discussed with the patient. She is also counseled regarding expectations of sterilization, including 1% failure rate, risk of ectopic . She understands the procedure is permanent and not reversible. All questions answered. Kt Putnam, DO CG/SAY TID: [id number] RECEIPT: [id number]
[~2024-06-25] VITALS: Ht 149.9 cm; Wt 92.1 kg
[~2024-06-25] MED LIST changes: +ACCU-CHEK COMFORT CURVE STRIP VI ONE; -ASPI-543 PO; +DOXAPRAM HCL 20 MG/ML 20ML VIAL INJ IV ONE; +DexAMETHasone SOD PHOS 10MG/1ML VIAL INJ ONE; -FER325T PO; -GLYB2.5T8 PO; +GLYCOPYRROLATE 0.2 MG/ML 1ML VIAL ONE; +HYDR1TAB97 PO; +HYDROmorphone HCL 2 MG/ML VL/or syr IV PRN; +HYDROmorphone HCL 2 MG/ML VL/or syr ONE; -INSREG3 IV; -INSUINJ2 SC; +KETAMINE 50mg/ML 1ml syringe ONE; +KETOROLAC TROMETH 30 MG/ML 1ML VIAL IV ONE; +LIDOCAINE 1% INJ PF 5ML AMP ONE; +LIDOCAINE HCL 2% TOP JELLY 5ML TOP ONE; +METF-370 PO; +METOCLOPRAMIDE HCL 5MG/ml INJ 2ml VIAL ONE; +MIDAZOLAM HCL 2MG/2ML 2ml VIAL (1mg/ml) ONE; +MORPHINE SULFATE INJ 2 MG/ml SYRG IV PRN; +NEOSTIGMINE 1 MG/ML INJ (10mg/10ML VIAL) ONE; +ONDANSETRON HCL 4 MG/2 ML VIAL ONE; +PROPOFOL 10 MG/ML 20 ML IV ONE; +ROCURONIUM 10MG/ML 10ML VIAL IV ONE; +SEMA2INJ3 SC; +SODIUM CHLORIDE LOCK 10 ML ONE; +SUCCINYLCHOLINE CHLORIDE 20 MG/ML 10ML VIAL IV ONE; +TERB250T92 PO; +ceFAZolin 2 GM/D5W100ml 100 ML IV ONE; +fentaNYL CITRATE 100 MCG/2 ML VL IV PRN; +fentaNYL CITRATE 100 MCG/2 ML VL ONE
[2024-06-25] MEDS: LIDOCAINE W/ EPINEPHRINE 2% INJ 20ML VIAL ONE (09:24)
[2024-06-25] MEDS: BUPIVACAINE HCL 50 ML ONE (09:24)
[2024-06-25 09:42] VITALS: PULSE 98; RESP 17; TEMP 97.9; O2SAT 96
--- NOTE | 2024-06-25 09:56 | DVHOP ---
DATE OF SURGERY: 06/25/2024 PREOPERATIVE DIAGNOSIS: Multiparity, requesting voluntary female sterilization. FINAL DIAGNOSES: * Multiparity, requesting voluntary female sterilization. * Right ovarian cyst. * Intraperitoneal adhesions. PROCEDURES PERFORMED: * Operative laparoscopic bilateral tubal ligation via bilateral salpingectomy. * Right ovarian cystectomy. * Lysis of adhesions. SURGEON: Kt Putnam DO DEVELOPMENT EDITOR: clinical research technician. TYPE OF ANESTHESIA: General endotracheal. ANESTHESIOLOGIST: Sasha Mg MD INDICATION FOR PROCEDURE: The patient is a 44-year-old female. She has had three prior sections. The patient is obese, history of gastric bypass surgery, and a recent . The patient requests voluntary female sterilization. She understands the procedure is permanent and non-reversible. She understands risk of failure is less than 1%. DESCRIPTION OF FINDINGS: An enlarged uterus approximately 12-week size. No fibroids noted. Extensive adhesions of the omentum to the anterior abdominal wall. There was a right ovarian serous cyst x 3cm with a solid component necessitating a right ovarian cystectomy. Bilateral removal of both fallopian tubes. No gross evidence of malignancy. Otherwise normal pelvic anatomy. TECHNICAL PROCEDURE: After informed consent was obtained, the patient was taken to the operating room where she underwent smooth induction with general anesthesia. She was placed in dorsal lithotomy position in Carlos stirrups. The vagina, perineum, and abdomen were thoroughly prepped and the patient sterilely draped in usual fashion. A pelvic exam was then performed under anesthesia. A weighted speculum was placed into the patient's vagina. The anterior lip of the cervix was grasped with a single-tooth tenaculum. Uterine cavity sounded to 10 cm. A HUMI uterine manipulator was placed transcervically and the balloon inflated. A transurethral Stewart was placed. All instrumentation was removed from the patient's vagina. Attention was then placed to the abdomen where a 5 mm incision was made at the base of the umbilicus. The Veress needle was introduced through this incision. Intraperitoneal placement was confirmed by the water drop test. Carbon dioxide gas was infused and pneumoperitoneum was obtained. A 5 mm Optiview trocar was placed through the umbilical incision. Intraperitoneal placement was confirmed directly with the laparoscope. Survey of the abdomen and pelvis revealed the above-noted findings. An 8 mm port was inserted to the left of midline under direct visualization and a 5 mm port was inserted to the right of midline under direct visualization. Insertions were both atraumatic. Next, the uterus was manipulated using the HUMI manipulator. There were extensive adhesions noted as described above. Sharp and blunt adhesiolysis was performed. The dense omental adhesions to the anterior abdominal wall were and ligated with the LigaSure device. Hemostasis was confirmed. Next, the left fallopian tube was found. It was traced to its fimbriated end. The psychology assistant grasped the fallopian tube at its distal end. The fallopian tube was dissected across the mesosalpinx with the LigaSure device and amputated approximately at the proximal attachment to the uterus. Hemostasis was confirmed. The fallopian tube was retrieved through the 8 mm port and submitted to pathology. The left fallopian tube was similarly dissected off the mesosalpinx with the LigaSure and the specimen submitted. There was a large approximately 5 cm ovarian cyst that ruptured serous fluid. There was a solid lesion on the ovary that was approximately 1-2 cm in size. A partial ovarian cystectomy was performed. The specimen was placed into an Endo Catch bag and removed through the 8 mm port. The specimen was submitted. The abdomen was irrigated with water. There was minimal bleeding from the omental adhesions that were controlled and cauterized with the LigaSure with good hemostasis confirmed. After thorough irrigation of the abdomen and pelvis, the surgical sites were inspected and hemostasis was again secured. The bowel, bladder, and other organs were inspected. There was no evidence of lesions or injuries. Under low pressure, there was no bleeding. At this point, the carbon dioxide gas was removed. Next, the trocars were removed under direct visualization. The skin incisions were injected with 0.25% Marcaine with 2% lidocaine with epinephrine approximately 15 mL of solution were used across the three incisions. The small 5 mm and 8 mm skin incisions were closed with 3-0 Monocryl in interrupted fashion and a thin layer of Dermabond was placed over the incisions. The Stewart catheter and cervical manipulator were removed. No bleeding from the vagina noted. The patient was taken out of lithotomy position, awakened, and taken to recovery room in stable condition. INTRAOPERATIVE COMPLICATIONS: None. ESTIMATED BLOOD LOSS: Approximately 50 mL. POSTOPERATIVE CONDITION: Stable. SPECIMENS: Left and right fallopian tubes and right ovarian cyst. MEDICATIONS: The patient received 2 grams of Ancef prior to skin incision. DO MALATHI Medrano/JEANNETTE TID: [id number] RECEIPT: [id number] MTDD
[2024-06-25] MEDS: METOCLOPRAMIDE HCL 5MG/ml INJ 2ml VIAL IV ONE (10:05)
[2024-06-25] MEDS: HYDROmorphone HCL 2 MG/ML VL/or syr IV PRN (10:05)
[2024-06-25 10:45] VITALS: PULSE 62; RESP 11; O2SAT 95
[2024-06-25 10:57] VITALS: BP 142/75; PULSE 62; RESP 12; O2SAT 99
== END | disposition home or self-care (01) ==
LOC: SUR 06:19
PROVIDERS: ATTEND Obstetrics & Gynecology
DX: Z30.2 Encounter for sterilization (principal); N83.11 Corpus luteum cyst of right ovary; K66.0 Peritoneal adhesions (postprocedural) (postinfection); E11.69 Type 2 diabetes mellitus with other specified complication; E66.01 Morbid (severe) obesity due to excess calories; Z64.1 Problems related to multiparity; Z87.59 Personal history of other complications of pregnancy, childbirth and the puerperium; Z98.84 Bariatric surgery status; Z98.891 History of uterine scar from previous surgery
CPT/HCPCS: 36415; 49329; 58662; 58670; 80053; 81001; 81025; 82962; 84702; 85025; 85610; 85730; 86850; 86860; 86870; 86880; 86900; 86901; 86905; 86906; 86970; 88307; J0330; J1100; J1171; J2250; J2405; J2704; J2765; J3010; J3490

== ENCOUNTER → 2024-07-08 | Outpatient (CLI) | payer BC, MEDICAID ==
[~2024-07-08] MED LIST changes: -ACCU-CHEK COMFORT CURVE STRIP VI ONE; -DOXAPRAM HCL 20 MG/ML 20ML VIAL INJ IV ONE; -DexAMETHasone SOD PHOS 10MG/1ML VIAL INJ ONE; -GLYCOPYRROLATE 0.2 MG/ML 1ML VIAL ONE; -HYDROmorphone HCL 2 MG/ML VL/or syr IV PRN; -HYDROmorphone HCL 2 MG/ML VL/or syr ONE; -KETAMINE 50mg/ML 1ml syringe ONE; -KETOROLAC TROMETH 30 MG/ML 1ML VIAL IV ONE; -LIDOCAINE 1% INJ PF 5ML AMP ONE; -LIDOCAINE HCL 2% TOP JELLY 5ML TOP ONE; -METOCLOPRAMIDE HCL 5MG/ml INJ 2ml VIAL ONE; -MIDAZOLAM HCL 2MG/2ML 2ml VIAL (1mg/ml) ONE; -MORPHINE SULFATE INJ 2 MG/ml SYRG IV PRN; -NEOSTIGMINE 1 MG/ML INJ (10mg/10ML VIAL) ONE; -ONDANSETRON HCL 4 MG/2 ML VIAL ONE; -PROPOFOL 10 MG/ML 20 ML IV ONE; -ROCURONIUM 10MG/ML 10ML VIAL IV ONE; -SODIUM CHLORIDE LOCK 10 ML ONE; -SUCCINYLCHOLINE CHLORIDE 20 MG/ML 10ML VIAL IV ONE; -ceFAZolin 2 GM/D5W100ml 100 ML IV ONE; -fentaNYL CITRATE 100 MCG/2 ML VL IV PRN; -fentaNYL CITRATE 100 MCG/2 ML VL ONE
[2024-07-08 09:09] LABS: Basophils # (auto) 0 10 ^3/uL (0-0.2); Basophils % (auto) 0.9 % (0.0-2.0); Eosinophils # (auto) 0.2 10 ^3/uL (0-0.8); Hemoglobin 12.2 g/dL (12.2-16.2); Monocytes # (auto) 0.3 10 ^3/uL (0-1.3); Nucleated Red Blood Cells % 0.1 %; White Blood Cell 5.6 10^3/uL (4.4-10.8)
[2024-07-08 09:14] LABS: Eosinophils % (auto) 3.6 % (0.0-7.0); Hematocrit 39.5 % (36.0-46.0); Lymphocytes % (auto) 36.3 % (10.0-50.0); Mean Corpuscular Hemoglobin 23.4 pg (28.0-32.0); Mean Corpuscular Volume 75.5 fL (80.0-100.0); Monocytes % (auto) 5.5 % (0.0-12.0); Neutrophils % (auto) 53.7 % (37.0-80.0); Platelet Count (auto) 262 10^3/uL (140-450); Red Blood Cells 5.23 10^6/uL (4.0-5.20); Red Cell Distribution Width 20.7 % (11.8-14.3)
[2024-07-08 09:45] LABS: Albumin 4.7 g/dL (3.2-4.8); Alkaline Phosphatase 89 U/L (46-116); Anion Gap 11 (5-15); BUN/Creatinine Ratio 10.8 (10.0-20.0); Calcium 9.8 mg/dL (8.7-10.4); Carbon Dioxide 25 mmol/L (20-31); Chloride 104 mmol/L (98-107); Potassium 4.6 mmol/L (3.5-5.1); Sodium 140 mmol/L (136-145)
[2024-07-08 09:46] LABS: Bilirubin, Total 0.4 mg/dL (0.2-1.0); Cholesterol 171 mg/dL (< 200); Total Protein 7.2 g/dL (5.7-8.2)
[2024-07-08 10:09] LABS: Alanine Aminotransferase 82 U/L (7-40); Aspartate Aminotransferase 50 U/L (13-40); Blood Urea Nitrogen 7 mg/dL (9-23); Glucose 112 mg/dL (74-106); HDL Cholesterol 40 mg/dL (40-59); LDL Cholesterol 119 mg/dL (< 100); Triglycerides 163 mg/dL (< 150)
[2024-07-08 10:50] LABS: Platelet Estimate Adequate
[2024-07-08 10:51] LABS: Anisocytosis Slight; Hypochromia Moderate
[2024-07-08 10:52] LABS: Ovalocytes FEW; Stomatocytes Few
== END | disposition home or self-care (01) ==
LOC: LAB 08:39
PROVIDERS: ATTEND Student in an Organized Health Care Education/Training Program
DX: I10 Essential (primary) hypertension (principal); E11.9 Type 2 diabetes mellitus without complications; E55.9 Vitamin D deficiency, unspecified
CPT/HCPCS: 36415; 80053; 80061; 82306; 83036; 84443; 85025

== ENCOUNTER → 2024-10-23 | Outpatient (CLI) | payer BC, MEDICAID ==
[2024-10-23 06:26] LABS: Urine Bacteria None Seen /hpf (None Seen)
[2024-10-23 06:49] LABS: Urine Blood Negative /uL (Negative); Urine Clarity Clear (Clear); Urine Color Yellow (Yellow); Urine Mucus FEW (None Seen); Urine Protein, UAD Negative (Negative); Urine Squamous Epithelial Cell MOD /hpf (<5); Urine Urobilinogen Normal (Negative); Urine WBC 1 /HPF (0-5); Urine pH 6.5 (5.0-9.0)
[2024-10-23 06:52] LABS: Basophils # (auto) 0.1 10 ^3/uL (0-0.2); Basophils % (auto) 1.1 % (0.0-2.0); Eosinophils # (auto) 0.3 10 ^3/uL (0-0.8); Eosinophils % (auto) 3.5 % (0.0-7.0); Hematocrit 35.5 % (36.0-46.0); Hemoglobin 11.3 g/dL (12.2-16.2); Lymphocytes # (auto) 2.8 10 ^3/uL (0.4-5.4); Lymphocytes % (auto) 32.8 % (10.0-50.0); Mean Corpuscular Hemoglobin 22.2 pg (28.0-32.0); Mean Corpuscular Hgb Conc. 31.9 g/dL (32.0-36.0); Mean Corpuscular Volume 69.8 fL (80.0-100.0); Monocytes # (auto) 0.6 10 ^3/uL (0-1.3); Monocytes % (auto) 7.5 % (0.0-12.0); Neutrophils # (auto) 4.7 10 ^3/uL (1.6-8.6); Neutrophils % (auto) 55.1 % (37.0-80.0); Nucleated Red Blood Cells % 0.1 %; Platelet Count (auto) 291 10^3/uL (140-450); Red Blood Cells 5.09 10^6/uL (4.0-5.20); Red Cell Distribution Width 16.5 % (11.8-14.3); White Blood Cell 8.6 10^3/uL (4.4-10.8)
[2024-10-23 07:34] LABS: Albumin 4.5 g/dL (3.2-4.8); Alkaline Phosphatase 103 U/L (46-116); Anion Gap 6 (5-15); Aspartate Aminotransferase 28 U/L (13-40); BUN/Creatinine Ratio 13.8 (10.0-20.0); Bilirubin, Total 0.5 mg/dL (0.2-1.0); Calcium 9.7 mg/dL (8.7-10.4); Carbon Dioxide 26 mmol/L (20-31); Microalb/Creat Ratio, Urine < 3.0; Potassium 4.5 mmol/L (3.5-5.1); Sodium 140 mmol/L (136-145); Total Protein 7.5 g/dL (5.7-8.2)
[2024-10-23 07:35] LABS: Alanine Aminotransferase 48 U/L (7-40); Blood Urea Nitrogen 9 mg/dL (9-23); Chloride 108 mmol/L (98-107); Glucose 111 mg/dL (74-106)
== END | disposition home or self-care (01) ==
LOC: LAB 06:08
PROVIDERS: ATTEND Student in an Organized Health Care Education/Training Program
DX: I10 Essential (primary) hypertension (principal); E11.9 Type 2 diabetes mellitus without complications
CPT/HCPCS: 36415; 80053; 81001; 82043; 82570; 83036; 85025

== ENCOUNTER 2025-01-26 17:54 | Emergency (ER) | payer BC, MEDICAID ==
[~2025-01-26] VITALS: Ht 149.9 cm; Wt 92.6 kg
--- NOTE | 2025-01-26 18:51 | ED.PDOC ---
GI ASSESSMENT HPI Comments This is a 45 year-old female who presents to the ED with a chief complaint of epigastric abdominal "pressure" for X1 week. Patient reports having an appt with PCP scheduled for February. Patient has no further complaints at this time and otherwise denies chest pain, SOB, N/V/D, abdominal pain, cough, or dysuria. Past Medical History: DM Past Surgical History: Gastric Sleeve, , Tubal Removal Social History: Denies ETOH, smoking, and drug use. Medications: Allergies: HPI: Poor Historian. Patient denies any pain or nausea or vomiting or symptoms. She feels some nonspecific pressure and possible lump. She thinks it might be related to her remote abdominal surgeries past possible scar tissues" REVIEW OF SYSTEMS: CONSTITUTIONAL: Denies acute: fever, diaphoresis, chills, generalized weakness. HEAD: Denies acute: headache, photophobia Eyes: Denies acute: Double vision, vision loss, eye pain, eye discharge. EARS: Denies acute: tinnitus, hearing loss, ear discharge, ear pain, THROAT: Denies acute: sore throat, swelling, difficulty swallowing , pain with swallowing, change in voice. NECK: Denies acute: neck pain, neck swelling, stiff neck. HEART: Denies acute : chest pain, palpitations, LUNGS: Denies acute: SOB, wheezing, cough, hemoptysis ABDOMEN: Denies acute: abdominal pain, Nausea, Vomiting, diarrhea, melena , hematemesis, hematochezia SKIN: Denies acute: rash, redness, lesions, itchiness. EXTREMITIES: Denies acute: calf pain, numbness, tingling, weakness, denies pain in extremity. Denies acute: Low back pain. Neuro: Denies acute: focal neurological deficit, motor or sensory focal neurological deficit, tremors, seizure like activity, confusion, dizziness, change in mental status, loss of bowel or bladder function, cauda equina like symptoms. : Denies acute: dysuria, hematuria, flank pain, increase in urinary frequency. PSYCH: Denies acute: hallucination, suicidal ideation, homicidal ideation. FEMALE: Denies acute: abnormal vaginal bleeding, foul odor, unusual discharge. PHYSICAL EXAM: General: ----no----acute distress, awake and alert. Head: normocephalic, atraumatic. Neck: supple, trachea is midline, no swelling. Throat: Normal phonation. Eyes:, no erythema, no purulent discharge, no proptosis, no icterus. Heart: regular rate, regular rhythm, no significant murmur appreciated. Lungs: no apparent respiratory distress, Able to speak in full sentences. No wheezing, no rhonchi, no crackles. No stridors Clear to auscultation bilaterally. Abdomen: non tender to palpation, non distended, soft, no guarding, no rebound, + bowel sounds. Neuro: Awake, Alert, oriented to name, self, situation, follows commands GCS=15. Speech is normal. Skin: no petechia, no purpura, no cyanosis, non-pale, not jaundice. Lower extremities: --no - Pitting edema no deformity, no focal swelling, no calf TTP. Makes eye contact. moves all four extremities. Face: no apparent facial droop. Ambulating in the ED independently. ED COURSE: DISCLAIMER: This medical document was created using an electronic medical record system with voice recognition software and computerized dictation system. Although this document has been carefully reviewed, there might still be some phonetic and typographical errors. Occasional wrong-word or "sound-alike" substitutions may have occurred due to the inherent limitations of voice recognition software. These areas are purely typographical due to imperfections of the software programs and do not reflect any compromise in the patient's medical care. Please read the chart carefully and recognize, using context, where these substitutions have occurred. Chief Complaint: Abdominal Pain Time Seen by MD: 18:46 Reviewed Notes: Nurses Notes, Medications, Allergies Allergies: Coded Allergies: NO KNOWN ALLERGIES (Unverified , 12/26/20) Home Meds Active Scripts Hydrocodone-Acetaminophen (Hydrocodone/Acetaminophen 5-325 mg) 1 Tab Tab, 1 TAB PO Q6HPRN PRN, #20 TAB Prov:MICHELL FRANCIS DO 06/26/24 Reported Medications Terbinafine Hcl (Terbinafine Hcl) 250 Mg Tab, 1 TAB PO DAILY, #14 TAB 06/22/24 Metformin Hydrochloride (Metformin Hcl) 500 Mg Tab, 1 TAB PO DAILY, #60 TAB 3 Refills 06/22/24 Semaglutide (Ozempic) 2 Mg/3 Ml Inj, 0.5 MG SC, INJ 06/22/24 Vit W/ Ferrous Fumara ( One Daily) Daily Tab, 1 TAB PO DAILY, #90 TAB 3 Refills 03/02/24 Omeprazole (Gnp Omeprazole) 20 Mg Tab, 40 MG PO DAILY, TAB 12/19/21 Information Source: Patient Mode of Arrival: Ambulatory Timing: Weeks Duration: Since onset Severity: Moderate Pain Location: Epigastric Associated sign and symptoms: Other (abd pressure ) Was a procedure done? Was a procedure done?: No GI differential Dx Differential Diagnosis: Constipation, Gastritis/PUD, Gastroenteritis, Ba cterial, Parasitic, Viral, Kidney Stone X-Ray, Labs, Meds, VS Vital Signs Date Time Temp Pulse Resp B/P (MAP) Pulse Ox O2 Delivery O2 Flow Rate FiO2 01/26/25 17:59 98.0 88 16 124/80 97 98.0 Lab Test 01/26/25 19:30 01/26/25 18:44 Range/Units Urine Color Light-yellow Yellow Urine Clarity Clear Clear Urine pH 6.5 5.0-9.0 Urine Specific [place] 1.031 1.001-1.035 Urine Protein Negative Negative Urine Ketones Negative Negative Urine Blood Negative Negative /uL Urine Nitrite Negative Negative Urine Bilirubin Negative Negative Urine Urobilinogen Normal Negative mg/dL Urine Leukocyte Esterase Negative Negative /uL Urine RBC 3 0 - 4 /hpf Urine Microscopic WBC < 1 0-5 /HPF Urine Squamous Epithelial Cells Few <5 /hpf Urine Bacteria None seen None Seen /hpf Urine Glucose Normal Normal mg/dL Urine Test Negative Negative White Blood Count 8.3 4.4-10.8 10^3/uL Red Blood Count 5.23 H 4.0-5.20 10^6/uL Hemoglobin 12.4 12.2-16.2 g/dL Hematocrit 38.8 36.0-46.0 % Mean Corpuscular Volume 74.1 L 80.0-100.0 fL Mean Corpuscular Hemoglobin 23.6 L 28.0-32.0 pg Mean Corpuscular Hemoglobin Concent 31.9 L 32.0-36.0 g/dL Red Cell Distribution Width 19.1 H 11.8-14.3 % Platelet Count 273 140-450 10^3/uL Mean Platelet Volume 8.2 6.9-10.8 fL Neutrophils (%) (Auto) 51.9 37.0-80.0 % Lymphocytes (%) (Auto) 39.1 10.0-50.0 % Monocytes (%) (Auto) 6.4 0.0-12.0 % Eosinophils (%) (Auto) 1.7 0.0-7.0 % Basophils (%) (Auto) 0.9 0.0-2.0 % Neutrophils # (Auto) 4.3 1.6-8.6 10 ^3/uL Lymphocytes # (Auto) 3.2 0.4-5.4 10 ^3/uL Monocytes # (Auto) 0.5 0-1.3 10 ^3/uL Eosinophils # (Auto) 0.1 0-0.8 10 ^3/uL Basophils # (Auto) 0.1 0-0.2 10 ^3/uL Nucleated Red Blood Cells 0.1 % Sodium Level 140 136-145 mmol/L Potassium Level 4.2 3.5-5.1 mmol/L Chloride Level 106 98-107 mmol/L Carbon Dioxide Level 27 20-31 mmol/L Anion Gap 7 5-15 Blood Urea Nitrogen 11 9-23 mg/dL Creatinine 0.73 0.550-1.02 mg/dL Glomerular Filtration Rate Calc 104 >90 mL/min BUN/Creatinine Ratio 15.1 10.0-20.0 Serum Glucose 120 H 74-106 mg/dL Lactic Acid Level 1.1 0.4-2.0 mmol/L Calcium Level 9.3 8.7-10.4 mg/dL Total Bilirubin 0.2 0.2-1.0 mg/dL Aspartate Amino Transferase (AST) 37 13-40 U/L Alanine Aminotransferase (ALT) 61 H 7-40 U/L Alkaline Phosphatase 101 46-116 U/L Total Protein 7.9 5.7-8.2 g/dL Albumin 4.8 3.2-4.8 g/dL Lipase 49 12-53 U/L [address] [address] Ph: [phone] DIAGNOSTIC IMAGING Diagnostic Imaging Report : [id number] Signed PATIENT: TAHIRA ARGUETA ACCT: [id number] UNIT: [id number] : 1980 LOC: ER ROOM / BED: / AGE / SEX: 45 / F ADM STATUS: REG ER SERVICE 1823 ORDERING PHYSICIAN: SUMAYA HARTMAN DO PROCEDURE(s): ABDL - ABDOMEN LIMITED REASON: RUQ PAIN ORDER NUMBER(s): [id number], ACCESSION NUMBER(s): [id number] INDICATION: RUQ PAIN TECHNIQUE: Multiple real-time sonographic images were obtained of the right upper quadrant. COMPARISON: US ABDOMEN LIMITED on DOS: 03/01/23, KUB ABDOMEN SINGLE VIEW on DOS: 12/20/21, KUB on DOS: 12/20/21 FINDINGS: The liver demonstrates increased hepatic echogenicity without focal mass lesions. The liver measures 17.6 cm. There is no intrahepatic or extrahepatic ductal dilatation. The common duct measures 2 mm. The gallbladder is partially contracted without evidence of stone or sludge. The gallbladder wall measures 3 mm and is within normal limits. The right kidney measures 9.7 cm. The right kidney is normal in contour, size, and shape. The echogenicity is normal. There is no hydronephrosis. Visualized portions of the pancreas are unremarkable. IMPRESSION: 1. Partially contracted gallbladder without sonographic evidence of cholelithiasis or acute cholecystitis. 2. Increased hepatic echogenicity, which may reflect hepatic steatosis or intrinsic hepatocellular disease. 3. Hepatomegaly. ATED BY: JEREMIE ROBERTS MD DICTATED DATE/TIME: 01/26/251913 SIGNED BY: JEREMIE ROBERTS MD SIGNED DATE/TIME: 01/26/251913 CC: Images Reviewed?: Images reviewed and evaluated by me Time of 1ST Reevaluation: 19:20 Reevaluation 1ST: Unchanged Patient Education/Counseling: Diagnosis, Treatment Family Education/Counseling: No Family Present Medical Screening: No EMC Exist At This Time SEPSIS Sepsis Screen Date sepsis recognized/suspect: Jan 26, 2025 Time Sepsis recognized/suspect: 1800 Recent Procedure: No On Antibiotic Therapy: No Respiratory Rate >20: No Heart Rate >90: No Temp<36 C (96.8 F) or >38.3 C: No SBP <90 or MAP <65 mmHG: No New Acute Mental Status Change: No Is the patient on CPAP, BIPAP,: No Physician Orders [facility] [place] (01/26/25 ) Abdomen Limited (01/26/25 18:23) Vital Signs Date Time Temp Pulse Resp B/P (MAP) Pulse Ox O2 Delivery O2 Flow Rate FiO2 01/26/25 17:59 98.0 88 16 124/80 97 98.0 Laboratory Tests Test 01/26/25 18:44 Lactic Acid Level 1.1 mmol/L (0.4-2.0) White Blood Count 8.3 10^3/uL (4.4-10.8) Departure 1 Departure Time of Disposition: 19:37 Impression: Primary Impression: Hepatomegaly Disposition: HOME / SELF CARE / HOMELESS Condition: Stable Additional Instructions: ADDITIONAL INSTRUCTIONS: PLEASE READ ALL INSTRUCTIONS PROVIDED IN THIS PACKET CAREFULLY. YOU MUST FOLLOW-UP WITH YOUR PRIMARY CARE/FAMILY DOCTOR IN 1 TO 2 DAYS. IF YOU ARE UNABLE TO SEE YOUR PRIMARY CARE/FAMILY DOCTOR, PLEASE RETURN TO OUR EMERGENCY ROOM FOR RE-ASSESSMENT AND RE-EVALUATION IN 1 TO 2 DAYS. RETURN TO THE EMERGENCY ROOM HERE IN OUR FACILITY OR TO THE NEAREST ER [facility] IF YOUR SYMPTOMS CHANGE OR WORSEN. CONSULTATIONS: YOU MUST FOLLOW-UP FOR CONSULTATION SOON POSSIBLE WITH: --GASTROENTEROLOGY AND GENERAL SURGERY IN 1-2 DAYS. PLEASE CALL FOR TORIN OINTMENT. YOU MUST CALL THE CONSULTANTS OFFICE YOURSELF TO MAKE AN APPOINTMENT. YOU MAY NEED TO ARRANGE THAT THROUGH YOUR INSURANCE AND/OR YOUR PRIMARY/FAMILY DOCTOR. IF YOU ARE UNABLE TO SEE THE ELECTROPLATING SALES REPRESENTATIVE IN 1 TO 2 DAYS, YOU MUST RETURN TO OUR EMERGENCY ROOM (OR ANY OTHER ER OF YOUR CHOICE) FOR RE-ASSESSMENT AND RE- EVALUATION. ADEQUATE FLUID HYDRATION. ALTHOUGH YOU HAVE BEEN DISCHARGED FROM THE EMERGENCY DEPARTMENT, THIS DOES NOT MEAN THAT YOU HAVE A "CLEAN BILL OF HEALTH". NO DEFINITIVE DIAGNOSIS FOR YOUR SYMPTOMS HAS BEEN MADE TODAY. IT IS POSSIBLE THAT YOU ARE IN THE PROCESS OF DEVELOPING A SERIOUS ILLNESS. THIS IS WHY YOU MUST RETURN TO THE ED WITHOUT FAIL IF ANY NEW OR WORSENING SYMPTOMS DEVELOP. BELOW IS A COPY OF YOUR RADIOLOGICAL REPORT FOR FOLLOW UP: [address] [address] Ph: [phone] DIAGNOSTIC IMAGING Diagnostic Imaging Report : [id number] Signed PATIENT: TAHIRA ARGUETA ACCT: [id number] UNIT: [id number] : 1980 LOC: ER ROOM / BED: / AGE / SEX: 45 / F ADM STATUS: REG ER SERVICE 1823 ORDERING PHYSICIAN: SUMAYA HARTMAN DO PROCEDURE(s): ABDL - ABDOMEN LIMITED REASON: RUQ PAIN ORDER NUMBER(s): [id number], ACCESSION NUMBER(s): [id number] INDICATION: RUQ PAIN TECHNIQUE: Multiple real-time sonographic images were obtained of the right upper quadrant. COMPARISON: US ABDOMEN LIMITED on DOS: 03/01/23, KUB ABDOMEN SINGLE VIEW on DOS: 12/20/21, KUB on DOS: 12/20/21 FINDINGS: The liver demonstrates increased hepatic echogenicity without focal mass lesions. The liver measures 17.6 cm. There is no intrahepatic or extrahepatic ductal dilatation. The common duct measures 2 mm. The gallbladder is partially contracted without evidence of stone or sludge. The gallbladder wall measures 3 mm and is within normal limits. The right kidney measures 9.7 cm. The right kidney is normal in contour, size, and shape. The echogenicity is normal. There is no hydronephrosis. Visualized portions of the pancreas are unremarkable. IMPRESSION: 1. Partially contracted gallbladder without sonographic evidence of cholelithiasis or acute cholecystitis. 2. Increased hepatic echogenicity, which may reflect hepatic steatosis or intrinsic hepatocellular disease. 3. Hepatomegaly. ATED BY: JEREMIE ROBERTS MD DICTATED DATE/TIME: 01/26/251913 SIGNED BY: JEREMIE ROBERTS MD SIGNED DATE/TIME: 01/26/251913 CC: Discharged With: Self I personally scribed for SUMAYA HARTMAN DO ([email or web address]) on 01/26/25 at 18:51. Electronically submitted by [facility] SUMAYA HARTMAN DO Jan 26, 2025 18:51
[2025-01-26 19:04] LABS: Hematocrit 38.8 % (36.0-46.0); Hemoglobin 12.4 g/dL (12.2-16.2); Mean Corpuscular Hemoglobin 23.6 pg (28.0-32.0); Mean Corpuscular Volume 74.1 fL (80.0-100.0); Nucleated Red Blood Cells % 0.1 %
--- NOTE | 2025-01-26 19:17 | DVH ---
INDICATION: RUQ PAIN TECHNIQUE: Multiple real-time sonographic images were obtained of the right upper quadrant. COMPARISON: US ABDOMEN LIMITED on DOS: 03/01/23, KUB ABDOMEN SINGLE VIEW on DOS: 12/20/21, KUB on DOS: 12/20/21 FINDINGS: The liver demonstrates increased hepatic echogenicity without focal mass lesions. The liver measures 17.6 cm. There is no intrahepatic or extrahepatic ductal dilatation. The common duct measures 2 mm. The gallbladder is partially contracted without evidence of stone or sludge. The gallbladder wall me asures 3 mm and is within normal limits. The right kidney measures 9.7 cm. The right kidney is normal in contour, size, and shape. The echog enicity is normal. There is no hydronephrosis. Visualized portions of the pancreas are unremarkable. IMPRESSION: 1. Partially contracted gallbladder without sonographic evidence of cholelithiasis or acute cholecyst itis. 2. Increased hepatic echogenicity, which may reflect hepatic steatosis or intrinsic hepatocellular di sease. 3. Hepatomegaly.
[2025-01-26 19:23] LABS: Albumin 4.8 g/dL (3.2-4.8); Alkaline Phosphatase 101 U/L (46-116); Anion Gap 7 (5-15); BUN/Creatinine Ratio 15.1 (10.0-20.0); Blood Urea Nitrogen 11 mg/dL (9-23); Calcium 9.3 mg/dL (8.7-10.4); Carbon Dioxide 27 mmol/L (20-31); Chloride 106 mmol/L (98-107); Lipase 49 U/L (12-53); Potassium 4.2 mmol/L (3.5-5.1); Sodium 140 mmol/L (136-145); Total Protein 7.9 g/dL (5.7-8.2)
[2025-01-26 19:42] LABS: Alanine Aminotransferase 61 U/L (7-40); Bilirubin, Total 0.2 mg/dL (0.2-1.0); Glucose 120 mg/dL (74-106)
[2025-01-26 20:16] LABS: Urine Protein, UAD Negative (Negative)
[2025-01-26 21:15] VITALS: BP 128/89; PULSE 84; RESP 17; TEMP 97.8; O2SAT 96
== END 2025-01-26 21:15 | disposition home or self-care (01) ==
LOC: ER 17:58
DX: R16.0 Hepatomegaly, not elsewhere classified (principal); Z79.899 Other long term (current) drug therapy
CPT/HCPCS: 36415; 76705; 80053; 81001; 81025; 83605; 83690; 85025

== ENCOUNTER → 2025-02-16 | Outpatient (CLI) | payer BC, MEDICAID ==
[2025-02-16 07:30] LABS: Urine Protein, UAD Negative (Negative)
[2025-02-16 07:36] LABS: Albumin 4.4 g/dL (3.2-4.8); Alkaline Phosphatase 90 U/L (46-116); Anion Gap 11 (5-15); BUN/Creatinine Ratio 12.1 (10.0-20.0); Calcium 9.2 mg/dL (8.7-10.4); Carbon Dioxide 25 mmol/L (20-31); Chloride 107 mmol/L (98-107); Cholesterol 108 mg/dL (< 200); Potassium 4.4 mmol/L (3.5-5.1); Sodium 143 mmol/L (136-145); Total Protein 7.4 g/dL (5.7-8.2); Triglycerides 123 mg/dL (< 150)
[2025-02-16 07:37] LABS: Alanine Aminotransferase 45 U/L (7-40); Bilirubin, Total 0.3 mg/dL (0.2-1.0); Blood Urea Nitrogen 8 mg/dL (9-23); Glucose 114 mg/dL (74-106); HDL Cholesterol 35 mg/dL (40-59)
[2025-02-16 07:38] LABS: Hemoglobin 12.3 g/dL (12.2-16.2); Nucleated Red Blood Cells % 0.1 %
[2025-02-16 07:40] LABS: Hematocrit 37.7 % (36.0-46.0); Mean Corpuscular Hemoglobin 24.4 pg (28.0-32.0); Mean Corpuscular Volume 74.8 fL (80.0-100.0)
== END | disposition home or self-care (01) ==
LOC: LAB 06:05
PROVIDERS: ATTEND Student in an Organized Health Care Education/Training Program
DX: I10 Essential (primary) hypertension (principal); E11.9 Type 2 diabetes mellitus without complications; E78.5 Hyperlipidemia, unspecified; E55.9 Vitamin D deficiency, unspecified
CPT/HCPCS: 36415; 80053; 80061; 81001; 82306; 83036; 84443; 85025